=== PATIENT | female | born 1995 | race Asian ===

== ENCOUNTER → 2017-02-02 | Outpatient (CLI) | payer OTHER ==
--- NOTE | 2017-02-05 08:00 | MAMMOGRAPHY REPORT ---
ULTRASOUND OF BOTH BREASTS: 02/02/2017 CLINICAL HISTORY: The patient reports that she had a whole breast ultrasound in [place] approximately o ne year ago and she was told to have yearly follow-up. Per the patient, they did not see any abnorma l masses or recommend biopsies. She reports general bilateral lumpiness, without a new lump noted. She also notes nonfocal left breast pain which is greatest when she is under stress. COMPARISON: No prior exams were available for comparison. TECHNIQUE: Real-time ultrasound of both breasts was performed. FINDINGS: Real-time high-resolution ultrasound was performed of both breasts including all 4 quadran ts and subareolar regions. The breast tissue is markedly heterogeneous on ultrasound, which reduces t he sensitivity of the exam. In the left 1:00 subareolar breast, there is an oval anechoic benign simp le cyst measuring 4 x 4 mm. In the right breast at 9:30, there is an oval circumscribed parallel hypo echoic benign-appearing mass which measures 5 x 3 x 4 mm. The mass is probably benign and likely rep resents a fibroadenoma, lymph node, or other benign mass. The remainder of both breasts demonstrate no suspicious masses or other suspicious sonographic abnormalities. A few other nodular hypoechoic a reas are seen within both breasts, which do not persist on orthogonal imaging and are felt to represe nt normal tissue. IMPRESSION: ACR-BI-RADS CATEGORY 3: PROBABLY BENIGN - FOLLOW-UP RECOMMENDED Hypoechoic circumscribed 5 mm mass in the right 9:30 breast on ultrasound. The mass is probably juan francisco gn and may represent a fibroadenoma or other benign mass. Recommend follow-up targeted ultrasound of the right breast in 6 months to confirm stability. Also recommend clinical follow-up for bilateral lumpiness and breast pain. The patient was verbally notified of the results. Jacinta Barth M.D. /:02/02/2017 13:58:23 Field Reviewer: Sheridan EDMOND)(Jose R), [facility] letter sent: Follow Up Recommended 3 BI-RADS Code: ACR-BI-RADS Category 3: Probably Benign
== END | disposition home or self-care (01) ==
LOC: C.MAMM 12:30
PROVIDERS: ATTEND Physician Assistant
DX: N63.10 Unspecified lump in the right breast, unspecified quadrant (principal); N63.20 Unspecified lump in the left breast, unspecified quadrant; N64.4 Mastodynia